=== PATIENT | female | born 1975 | race Caucasian/White ===

== ENCOUNTER → 2021-01-17 | Day surgery (SDC) | payer OTHER ==
[~2021-01-17] MED LIST: Ketorolac 30 MG/ML SDV ONE; Lactated Ringers 1,000 ML IV SCH; Lidocaine 1% with EPINEPHrine 1:100,000 20 ML MDV INJECT ONE; Midazolam 1 MG/ML 2 ML SDV ONE; Ondansetron 4 MG/2 ML SDV ONE; Propofol 200 MG/20 ML SDV ONE; fentaNYL 100 MCG/2 ML SDV ONE
[2021-01-17 14:11] VITALS: PULSE 76
[2021-01-17 14:40] VITALS: BP 118/77
--- NOTE | 2021-01-17 16:30 | OR ---
DATE OF OPERATION: 01/17/2021 PREOPERATIVE DIAGNOSIS: INTERNAL-EXTERNAL HEMORRHOIDS. POSTOPERATIVE DIAGNOSIS: INTERNAL-EXTERNAL HEMORRHOIDS. SURGEON: Chad Duarte MD PROCEDURE: 1. INTERNAL-EXTERNAL HEMORRHOID RESECTION. 2. TWO COLUMNS OF HEMORRHOIDS. ANESTHESIA: Local plus MAC. SPECIMEN: Hemorrhoids. INDICATIONS: This 45-year-old female has significant hemorrhoids with rectal bleeding, most likely due from internal hemorrhoids. DESCRIPTION OF PROCEDURE: After adequate preparation, a perianal block was done with 1% xylocaine with epinephrine. A hemorrhoid speculum was placed within the anal canal and the examination was done. She does have two relatively large hemorrhoids that are communicating with internal-external, one on the left anterior and one on the right lateral portion of the anal canal. The skin was excised in a ashley-type fashion and carried down to elevate the hemorrhoid off the deeper tissue. A Ana Lilia clamp was placed on the hemorrhoid and the hemorrhoid amputated. A 3-0 Vicryl suture was then used in a running fashion up to the dentate line to close the internal hemorrhoid mucosa. A separate Vicryl suture was used to close the skin on the outside. The right side was done in a similar fashion. The closure of the skin, however, with both of these seemed to make the anal opening a little tighter than I would like it to be, so I took the suture out of the left anterior portions of the skin and redid just some of the looser internal parts of the incision. There will be some open skin and submucosal tissue on the left side. This should fill in, however, without any problems. No other abnormalities were noted. The patient was taken to recovery room. BRADLEY/CHRISTINE /[id number]
== END ==
LOC: CC.SDS 11:32
PROVIDERS: ATTEND Surgery
DX: K64.8 Other hemorrhoids (principal); K64.4 Residual hemorrhoidal skin tags; I86.8 Varicose veins of other specified sites; E66.9 Obesity, unspecified; F41.8 Other specified anxiety disorders; M54.9 Dorsalgia, unspecified; G92.9 Unspecified toxic encephalopathy; Z79.899 Other long term (current) drug therapy; Z98.890 Other specified postprocedural states; Z87.891 Personal history of nicotine dependence; Z68.29 Body mass index [BMI] 29.0-29.9, adult; Z01.812 Encounter for preprocedural laboratory examination; Z20.822 Contact with and (suspected) exposure to COVID-19
CPT/HCPCS: 00902; 36415; 46260; 84703; 87635; J1885; J2250; J2405; J2704; J3010; J7120; U0002